=== PATIENT | male | born 1945 | race African-American/Black ===

== ENCOUNTER 2025-08-10 21:00 | Inpatient (IN) | payer MEDICARE, OTHER ==
[~2025-08-10] VITALS: Ht 167.6 cm; Wt 70.8 kg
[2025-08-10] MEDS: MIDAZOLAM HCL 2 MG/2 ML VIAL ONE (21:16)
[2025-08-10] MEDS: MIDAZOLAM HCL 2 MG/2 ML VIAL IV ONE (21:17)
[2025-08-10] MEDS: SODIUM CHLORIDE 0.9% 1,000 ML IV ONE (21:20)
[2025-08-10 21:30] LABS: HEMATOCRIT. 33.9 % (42.0-52.0); HEMOGLOBIN. 10.4 g/dL (14.0-18.0); MEAN PLATELET VOLUME 8.0 fl (7.4-10.4); PLATELET 96 x1000/uL (130-400); RED BLOOD CELL COUNT 3.70 mill/uL (4.7-6.1); RED CELL DISTRIBUTION WIDTH 23.8 % (11.6-14.6)
[2025-08-10 21:45] LABS: CREATININE 1.5 mg/dL (0.6-1.3); UREA NITROGEN BLOOD 31 mg/dL (9-23)
[2025-08-10 21:46] LABS: ETHANOL BLOOD < 10 mg/dL (<10); PROTEIN TOTAL 7.4 g/dL (6.0-8.3)
[2025-08-10 21:47] LABS: ASPARTATE AMINOTRANSFERASE 28 IU/L (<34); BILIRUBIN DIRECT < 0.1 mg/dL (<=3.0); TROPONIN I HIGH SENSITIVITY 8 ng/L (3.0-53)
[2025-08-10 21:48] LABS: BILIRUBIN TOTAL 0.3 mg/dL (0.1-1.0)
[2025-08-10] MEDS ORDERED: MANNITOL 20% 100 ML IV NR (21:52)
[2025-08-10 21:53] LABS: LYMPHOCYTES % MANUAL 38.0 % (20.0-50.0); MONOCYTES % MANUAL 6.0 % (2.0-8.0); NEUTROPHILS % MANUAL 56.0 % (45.0-75.0); NUCLEATED RED BLOOD CELLS 4 /100 WBC; PLATELET ESTIMATE DECREASED
[2025-08-10] MEDS ORDERED: ACETAMINOPHEN 325MG TABLET PO PRN (22:00)
[2025-08-10] MEDS ORDERED: MANNITOL 20% (20GM/100ML) BAG 500ML PREMIX IV ONE (22:00)
[2025-08-10] MEDS ORDERED: HYDRALAZINE 20MG/ML VIAL IV PRN (22:00)
[2025-08-10] MEDS ORDERED: NICARDIPINE 40MG/200ML PREMIX 200 ML IV PRN (22:00)
[2025-08-10] MEDS ORDERED: IPRATROPIUM/ALBUTEROL 0.5-3(2.5)MG/3ML NEB NEB PRN (22:00)
[2025-08-10] MEDS: LABETALOL 5MG/ML 4ML INJ IV ONE (22:06)
[2025-08-10] MEDS: LEVETIRACETAM 3,500 MG in SODIUM CHLORIDE 0.9% 250 ML IV SCH (22:14)
[2025-08-10] MEDS: MANNITOL 20% 250 ML IV NR (23:06)
[2025-08-10 23:11] LABS: GLUCOSE URINE NEGATIVE (NEGATIVE); KETONES URINE NEGATIVE (NEGATIVE); LEUKOCYTE ESTERASE URINE 1+ (NEGATIVE); NITRITE URINE NEGATIVE (NEGATIVE); OCCULT BLOOD URINE 3+ (NEGATIVE); PH URINE 6.0 (4.5-8.0); PROTEIN URINE 2+ (NEGATIVE); SPECIFIC GRAVITY URINE 1.008 (1.005-1.030); UROBILINOGEN URINE 0.2 E.U./dL (0.2-1.0)
[2025-08-10 23:20] VITALS: BP 146/75; PULSE 67; RESP 19; TEMP 36.7; O2SAT 99
[2025-08-10 23:24] LABS: COLOR URINE ORANGE (YELLOW)
[2025-08-10 23:25] LABS: CLARITY URINE HAZY (CLEAR)
[2025-08-10 23:26] LABS: RBC URINE 50-100 /hpf (0-2)
[2025-08-10 23:27] LABS: BACTERIA URINE TRACE; MUCUS URINE 1+ /lpf (NONE/TRACE); SQUAMOUS EPITHELIAL CELL URINE RARE /lpf (RARE/1+)
[2025-08-10 23:30] VITALS: BP 135/75; PULSE 67; RESP 19; O2SAT 99
[2025-08-10 23:43] LABS: *AMPHETAMINES SCREEN URINE NEGATIVE (NEGATIVE); *BARBITURATES SCREEN URINE NEGATIVE (NEGATIVE); *BENZODIAZEPINES SCREEN URINE NEGATIVE (NEGATIVE); *COCAINE SCREEN URINE NEGATIVE (NEGATIVE); CANNABINOID URINE SCREEN NEGATIVE (NEGATIVE); ECSTASY MDMA SCREEN URINE NEGATIVE (NEGATIVE); METHADONE URINE SCREEN NEGATIVE (NEGATIVE); OPIATES URINE SCREEN NEGATIVE (NEGATIVE); PHENCYCLIDINE URINE SCREEN NEGATIVE (NEGATIVE)
[2025-08-10 23:45] VITALS: BP 134/72; PULSE 67; RESP 19; O2SAT 99
[2025-08-11] VITALS (83 sets, daily range): BP systolic 96–152; BP diastolic 55–94; PULSE 61–81; RESP 9–24; TEMP 36.2–36.9; O2SAT 94–100
[2025-08-11] MEDS: DEXT 5%/LACTATED RINGERS 1,000 ML IV SCH (00:18)
[2025-08-11] MEDS: DEXAMETHASONE 4MG/ML 1ML VIAL IV SCH (00:18)
[2025-08-11] MEDS: NICARDIPINE 100 MG in SODIUM CHLORIDE 0.9% 60 ML IV PRN (00:39)
[2025-08-11] MEDS ORDERED: LEVETIRACETAM 1,000MG in NACL 100ML PREMIX IV SCH (09:00)
[2025-08-11] MEDS ORDERED: LEVETIRACETAM 500MG PREMIX 100 ML IV SCH (09:00)
[2025-08-11] MEDS: LEVETIRACETAM 1000MG PREMIX 100 ML IV SCH (09:57)
[2025-08-11] MEDS: PANTOPRAZOLE SODIUM 40 MG/VIAL IV SCH (09:57)
[2025-08-11 11:19] LABS: BG BASE EXCESS -10.0 mmol/L (-2.0-3.0); BG CARBOXYHEMOGLOBIN 0.1 % (0.5-1.5); BG DEOXYHEMOGLOBIN 3.1 % (0.0-5.0); BG FRACTION INSPIRED OXYGEN 21; BG HCO3 ACT 14.2 mmol/L (21.0-28.0); BG METHEMOGLOBIN 0.2 % (0.5-1.5); BG OXYGEN SATURATION 96.9 % (94.0-98.0); BG OXYHEMOGLOBIN 96.6 % (94.0-98.0); BG PCO2 26.1 mmHg (35.0-48.0); BG PH 7.353 (7.350-7.450); BG PO2 97.3 mmHg (83.0-108.0); BG SAMPLE SITE RIGHT RADIAL; BG TOTAL HEMOGLOBIN 10.0 g/dL (13.5-17.5); BG VENT MODE ROOM AIR
[2025-08-11] MEDS ORDERED: NALOXONE HCL 0.4MG/ML VIAL IV PRN (13:00)
[2025-08-11] MEDS: MORPHINE SULFATE 2 MG/ML INJ (NOT FOR IM USE) IV PRN (13:03)
[2025-08-11 23:40] LABS: INR 1.1
[2025-08-12] VITALS (66 sets, daily range): BP systolic 118–164; BP diastolic 76–102; PULSE 56–72; RESP 9–25; TEMP 35.9–36.7; O2SAT 95–100
[2025-08-12 07:23] LABS: BASOPHILS % 0.1 % (0.0-2.0); EOSINOPHILS % 0.1 % (0.0-5.0); HEMATOCRIT. 30.4 % (42.0-52.0); HEMOGLOBIN. 9.6 g/dL (14.0-18.0); LYMPHOCYTES % 27.4 % (20.0-50.0); MEAN PLATELET VOLUME 8.2 fl (7.4-10.4); MONOCYTES % 3.4 % (2.0-8.0); NEUTROPHILS % 69.0 % (40.0-76.0); PLATELET 94 x1000/uL (130-400); RED BLOOD CELL COUNT 3.35 mill/uL (4.7-6.1); RED CELL DISTRIBUTION WIDTH 23.8 % (11.6-14.6)
[2025-08-12 07:26] LABS: CREATININE 1.3 mg/dL (0.6-1.3); UREA NITROGEN BLOOD 40 mg/dL (9-23)
[2025-08-12] MEDS: AMLODIPINE 5MG TABLET PO SCH (12:14)
[2025-08-12] MEDS: DEXAMETHASONE 4MG/ML 1ML VIAL IV SCH (16:58)
[2025-08-13] VITALS (38 sets, daily range): BP systolic 117–163; BP diastolic 61–107; PULSE 66–99; RESP 13–22; TEMP 35.8–36.7; O2SAT 94–100
[2025-08-13 07:22] LABS: PLATELET 86 x1000/uL (130-400); RED BLOOD CELL COUNT 3.64 mill/uL (4.7-6.1); RED CELL DISTRIBUTION WIDTH 23.2 % (11.6-14.6)
[2025-08-13 07:36] LABS: CREATININE 1.4 mg/dL (0.6-1.3); UREA NITROGEN BLOOD 45.0 mg/dL (9-23)
[2025-08-13] MEDS: BISACODYL 5MG TABLET PO SCH (15:59)
[2025-08-13] MEDS: OXYCODONE HCL 5MG TABLET PO PRN (16:00)
[2025-08-13] MEDS: ONDANSETRON HCL 4MG/2ML INJ IV PRN (18:03)
[2025-08-13] MEDS: PANTOPRAZOLE 40MG DR TABLET PO SCH (20:56)
[2025-08-13] MEDS: DEXAMETHASONE 4MG TABLET PO SCH (20:56)
[2025-08-13] MEDS: LEVETIRACETAM 500MG TABLET PO SCH (20:58)
[2025-08-14] VITALS (9 sets, daily range): BP systolic 103–145; BP diastolic 83–106; PULSE 73–85; RESP 12–17; TEMP 36.1–36.5; O2SAT 82–100
[2025-08-14] MEDS ORDERED: HYDROCODONE/ACETAMINOPHEN 5/325MG TABLET PO PRN (10:00)
[2025-08-14] MEDS: LEVETIRACETAM 500MG TABLET PO SCH (21:20)
[2025-08-15] VITALS: BP 137/96; PULSE 85; RESP 22; TEMP 36.4
[2025-08-15] MEDS: IBUPROFEN 600MG TABLET PO PRN (03:26)
[2025-08-15 04:00] VITALS: BP 110/78; PULSE 68; RESP 15; TEMP 36.2
[2025-08-15 08:00] VITALS: BP 80/65; PULSE 65; RESP 27; O2SAT 98
[2025-08-15 10:48] VITALS: O2SAT 100
[2025-08-15 11:53] LABS: BG BASE EXCESS -15.0 mmol/L (-2.0-3.0); BG CARBOXYHEMOGLOBIN 0.3 % (0.5-1.5); BG DEOXYHEMOGLOBIN 0.0 % (0.0-5.0); BG FLOW(L/min) 15.00 L/min; BG FRACTION INSPIRED OXYGEN 100; BG HCO3 ACT 11.5 mmol/L (21.0-28.0); BG METHEMOGLOBIN 0.3 % (0.5-1.5); BG OXYGEN SATURATION 100.0 % (94.0-98.0); BG OXYHEMOGLOBIN 99.4 % (94.0-98.0); BG PCO2 29.1 mmHg (35.0-48.0); BG PH 7.214 (7.350-7.450); BG PO2 391.3 mmHg (83.0-108.0); BG SAMPLE SITE RIGHT BRACHIAL; BG TOTAL HEMOGLOBIN 10.3 g/dL (13.5-17.5); BG VENT MODE MASK - NRB
[2025-08-15] MEDS ORDERED: SODIUM CHLORIDE 0.9% 500 ML IV ONE (13:00)
[2025-08-15] MEDS: SODIUM BICARBONATE 8.4% 50MEQ/50ML SYR IV NR (13:12)
[2025-08-15] MEDS: SODIUM CHLORIDE 0.9% 500 ML IV ONE (13:14)
[2025-08-15] MEDS ORDERED: SODIUM CHLORIDE 0.9% 1,000 ML IV ONE (14:00)
[2025-08-15] MEDS ORDERED: AZITHROMYCIN 500MG/250ML 250 ML IV SCH (17:00)
[2025-08-15] MEDS ORDERED: CEFTRIAXONE 1GM/50ML 50 ML IV SCH (18:00)
[2025-08-15] MEDS ORDERED: LEVETIRACETAM 500MG in NACL 100ML PREMIX IV SCH (21:00)
[2025-08-15] MEDS ORDERED: PANTOPRAZOLE SODIUM 40 MG/VIAL IV SCH (21:00)
[2025-08-15] MEDS ORDERED: LEVETIRACETAM 500MG PREMIX 100ML IV SCH (21:00)
[2025-08-15] MEDS ORDERED: DEXAMETHASONE 4MG/ML 1ML VIAL IV SCH (21:00)
== END 2025-08-15 16:50 | DRG 64 ==
LOC: ER 21:00 → MICUNO 21:56 → EDBEDREQ 22:09 → 5EST 08-13 13:36
PROVIDERS: ADMIT Internal Medicine; ATTEND Internal Medicine
DX: I62.00 Nontraumatic subdural hemorrhage, unspecified (principal); J18.9 Pneumonia, unspecified organism; J96.01 Acute respiratory failure with hypoxia; G93.40 Encephalopathy, unspecified; C79.51 Secondary malignant neoplasm of bone; E46 Unspecified protein-calorie malnutrition; S22.41XA Multiple fractures of ribs, right side, initial encounter for closed fracture; Z51.5 Encounter for palliative care; Z66 Do not resuscitate; J90 Pleural effusion, not elsewhere classified; N17.9 Acute kidney failure, unspecified; D69.6 Thrombocytopenia, unspecified; R56.9 Unspecified convulsions; D64.9 Anemia, unspecified; I11.0 Hypertensive heart disease with heart failure; N18.9 Chronic kidney disease, unspecified; N13.30 Unspecified hydronephrosis; L81.9 Disorder of pigmentation, unspecified; I25.10 Atherosclerotic heart disease of native coronary artery without angina pectoris; Z68.25 Body mass index [BMI] 25.0-25.9, adult; Z85.46 Personal history of malignant neoplasm of prostate; X58.XXXA Exposure to other specified factors, initial encounter; Y93.89 Activity, other specified; Y92.89 Other specified places as the place of occurrence of the external cause; Y99.8 Other external cause status
CPT/HCPCS: 36415; 36600; 71045; 71250; 74176; 80048; 80076; 80305; 80320; 81003; 82375; 82550; 82805; 83605; 83735; 83880; 84484; 85025; 85027; 93005; 93970; 99291; A4606; A4615; J0456; J0696; J1100; J1953; J2250; J2270; J2405; J2470; J3490; J7030; J7050; J7121; J8540; A5200; G0480